=== PATIENT | female | born 1980 | race Caucasian/White ===

== ENCOUNTER 2023-12-17 16:22 | Emergency (ER) | payer OTHER ==
[~2023-12-17] VITALS: Ht 162.6 cm; Wt 63.0 kg
[2023-12-17 16:28] VITALS: O2SAT 98
[2023-12-17] MEDS: SODIUM CHLORIDE 0.9% 1,000 ML IV ONE (17:24)
[2023-12-17] MEDS: KETOROLAC 15MG/ML VIAL IV ONE (17:24)
[2023-12-17 17:46] LABS: BASOPHILS % 0.4 % (0.0-2.0); EOSINOPHILS % 0.5 % (0.0-5.0); HEMATOCRIT. 33.3 % (36.0-48.0); HEMOGLOBIN. 10.8 g/dL (12.0-16.0); LYMPHOCYTES % 11.7 % (20.0-50.0); MEAN CORPUSCULAR HEMOGLOBIN 27.5 pg (28.0-32.0); MEAN CORPUSCULAR HGB CONC 32.4 g/dL (31.0-37.0); MEAN CORPUSCULAR VOLUME 84.9 fL (81.0-99.0); MEAN PLATELET VOLUME 8.7 fl (7.4-10.4); MONOCYTES % 4.2 % (2.0-8.0); NEUTROPHILS % 83.2 % (40.0-76.0); PLATELET 298 x1000/uL (130-400); RED BLOOD CELL COUNT 3.92 mill/uL (4.2-5.4); RED CELL DISTRIBUTION WIDTH 15.8 % (11.6-14.6); WHITE BLOOD COUNT 10.1 x1000/uL (4.5-11.0)
[2023-12-17 17:52] LABS: CHLORIDE 107 mEq/L (98-107); POTASSIUM 3.9 mEq/L (3.5-5.1); SODIUM 141 mEq/L (136-145)
[2023-12-17 17:53] LABS: CARBON DIOXIDE 27 mEq/L (21-32)
[2023-12-17 17:54] LABS: CALCIUM 8.5 mg/dL (8.7-10.4)
[2023-12-17 17:58] LABS: GLUCOSE 198 mg/dL (70-105); HCG SCREEN NEGATIVE; UREA NITROGEN BLOOD 12 mg/dL (9-23)
[2023-12-17 18:01] LABS: TROPONIN I HIGH SENSITIVITY < 4 ng/L (3.0-34)
[2023-12-17] MEDS ORDERED: IBUP-2028 MT (19:32)
[2023-12-17 19:35] VITALS: BP 133/73; PULSE 90; RESP 18; TEMP 36.66960; O2SAT 99
== END 2023-12-17 19:40 | disposition home or self-care (01) ==
LOC: ER 16:22
DX: S09.90XA Unspecified injury of head, initial encounter (principal); R55 Syncope and collapse; E11.9 Type 2 diabetes mellitus without complications; I10 Essential (primary) hypertension; F12.10 Cannabis abuse, uncomplicated; W18.39XA Other fall on same level, initial encounter; Y93.89 Activity, other specified; Y92.89 Other specified places as the place of occurrence of the external cause; Y99.8 Other external cause status
CPT/HCPCS: 80048; 84703; 85025; 84484; 36415; 70450; 93005; 96361; 96374; 99285; J1885; J7030; Z7610 ×3